=== PATIENT | female | born 1960 | race Caucasian/White ===

== ENCOUNTER 2017-12-01 11:32 | Inpatient (IN) | payer BC ==
[~2017-12-01] VITALS: Ht 160 cm; Wt 63.5 kg
--- NOTE | 2017-12-01 11:38 | NUR ---
Patient brougnt in by EMS services, vitals as follow: HR 115, 114/73 sat of 91% on RA. NC 2 L applied saturation increased to 95%
[2017-12-01 11:51] LABS: *BILIRUBIN,URIN NEGATIVE (NEGATIVE); *BLOOD, URINE Trace-lysed (NEGATIVE); *CLARITY,URINE CLEAR (CLEAR); *COLOR,URINE YELLOW (YELLOW); *KETONES,URINE 1+ (NEGATIVE); *PROTEIN,URINE 2+ (NEGATIVE); *UROBILINOGEN,URINE 0.2 E.U./dl (NORMAL); LEUKOCYTE ESTERASE ,URINE NEGATIVE (NEGATIVE); NITRITE, URINE NEGATIVE (NEGATIVE); PH,URINE 5.5 (5.0-8.0); UGLUCOSE NEGATIVE (NEGATIVE)
[2017-12-01 11:55] LABS: BACTERIA,URINE FEW /HPF (NONE SEEN); RBC,URINE 0-3 /HPF (0-3); SQUAMOUS EPITHELIAL CELL,UR MODERATE /HPF (NONE SEEN); WBC,URINE 0-3 /HPF (0-3)
--- NOTE | 2017-12-01 12:00 | NUR ---
Patient awake at this time speech clear, but pt. is confused, disoriented. HR of 136. at bedside.
[2017-12-01 12:39] LABS: BASOPHILS % (AUTO) 0.3 % (0.0-2.0); EOSINOPHILS # (AUTO) 0.3 K/uL (0.0-0.7); EOSINOPHILS % (AUTO) 2.8 % (0.0-7.0); HEMATOCRIT 38.2 % (31.2-41.9); HEMOGLOBIN 12.8 g/dL (10.9-14.3); LYMPHOCYTES # (AUTO) 0.8 K/uL (20.0-40.0); LYMPHOCYTES % (AUTO) 8.4 % (20.5-51.5); MEAN CORPUSCULAR HEMOGLOBIN 32.4 uug (24.7-32.8); MEAN CORPUSCULAR HGB CONC 34 g/dL (32.3-35.6); MEAN CORPUSCULAR VOLUME 96.5 fL (75.5-95.3); MONOCYTES # (AUTO) 0.5 K/uL (2.0-10.0); MONOCYTES % (AUTO) 5.2 % (0.0-11.0); NEUTROPHILS # (AUTO) 8.1 K/uL (1.8-8.9); NEUTROPHILS % (AUTO) 83.3 % (38.5-71.5); PLATELET COUNT (AUTO) 204 K/uL (179-408); RED BLOOD CELL COUNT(AUTO) 3.96 MIL/uL (3.63-4.92); WHITE BLOOD COUNT (AUTO) 9.8 K/uL (3.8-11.8)
[2017-12-01 12:43] LABS: CARBON DIOXIDE 16 mmol/L (21-32); CHLORIDE 103 mmol/L (98-107); CREATININE 1.3 mg/dL (0.6-1.3); ETHANOL < 3 MG/DL (0-0); GLUCOSE 176 mg/dL (74-106); POTASSIUM 3.5 mmol/L (3.5-5.1); UREA NITROGEN, BLOOD 8 mg/dL (7-18)
[2017-12-01 12:45] LABS: *AMPHETAMINE, URINE NEGATIVE (NEGATIVE); *BARBITURATE, URINE NEGATIVE (NEGATIVE); *CANNABINOID, URINE NEGATIVE (NEGATIVE); *COCCAINE, URINE NEGATIVE (NEGATIVE); *OPIATE, URINE NEGATIVE (NEGATIVE); *PHENCYCLIDINE SCREEN,URINE NEGATIVE (NEGATIVE)
[2017-12-01 12:49] LABS: ALANINE AMINOTRANSFERASE 70 U/L (14-59); ALKALINE PHOSPHATASE 87 U/L (50-136); ASPARTATE AMINOTRANSFERASE 45 U/L (15-37); BILIRUBIN,DIRECT 0.1 mg/dL (0.0-0.2); BILIRUBIN,TOTAL 0.4 mg/dL (0.2-1.0); TOTAL PROTEIN, SERUM 7.1 g/dL (6.4-8.2)
--- NOTE | 2017-12-01 12:56 | NUR ---
Pt. taken down for C.T. of the head.
[2017-12-01 13:00] LABS: ACETAMINOPHEN 5.4 ug/mL (10-30); THYROID STIMULATING HORMONE 4.067 mIU/mL (0.358-3.740)
--- NOTE | 2017-12-01 13:10 | NUR ---
PT. back from Ct.
--- NOTE | 2017-12-01 14:26 | NUR ---
AAOx2. Fiona. vitals as follow:HR of 100 100% SAT on 2L. 134/90
--- NOTE | 2017-12-01 15:36 | NUR ---
a call to [facility] and Dr. Hinson on the phone.
--- NOTE | 2017-12-01 16:00 | NUR ---
Telephone report given to Trav Jimenez by celestino Meehan. and patient taken up via gurney.
[2017-12-01 16:30] VITALS: BP 127/74
--- NOTE | 2017-12-01 16:33 | NUR ---
paging doctor donald for admitting orders pending call back.
[2017-12-01] MEDS ORDERED: xanax (16:49)
[2017-12-01] MEDS ORDERED: zyrtec (16:49)
[2017-12-01] MEDS ORDERED: lipitor (16:49)
[2017-12-01] MEDS ORDERED: MAGNESIUM HYDROXIDE 30 ML LIQUID UDC PO PRN (17:45)
[2017-12-01] MEDS ORDERED: FOLIC ACID 1 MG in IV DEXTROSE 5% 50 ML IV SCH (17:45)
[2017-12-01] MEDS ORDERED: ONDANSETRON 4 MG/2 ML VIAL IV PRN (17:45)
[2017-12-01] MEDS ORDERED: THIAMINE HCL INJ 100 MG in IV DEXTROSE 5% 50 ML IV SCH (17:45)
[2017-12-01] MEDS ORDERED: HYDROCODONE/APAP 5-325MG TABLET PO PRN (17:45)
[2017-12-01] MEDS ORDERED: ZOLPIDEM 5 MG TABLET PO PRN (17:45)
[2017-12-01] MEDS ORDERED: Z GUARD REMEDY PASTE 57 GM TUBE TOP PRN (17:45)
[2017-12-01] MEDS: IV NS 1000 ML 1,000 ML IV PRN (18:32)
[2017-12-01] MEDS ORDERED: LORAZEPAM 2 MG/1 ML VIAL IV PRN (18:45)
--- NOTE | 2017-12-01 19:20 | NUR ---
Received patient lying in bed. AAO x4. In no acute distress. IV site on right AC intact and patent. IVF infusing. Denies any SOB or pain at this time. On O2 at 2lpm via NC in place. O2 sat at 96%. Sinus tachy on tele at 110/min. Needs assessed and attended to. Safety measure initiated and call hernandez within reach.
[2017-12-01] MEDS: ACETAMINOPHEN 325 MG TABLET PO PRN (20:09)
[2017-12-01 20:15] VITALS: BP 131/82
[2017-12-01] MEDS ORDERED: TRAZODONE 100 MG TABLET PO SCH (21:00)
[2017-12-02] VITALS: BP 120/72
[2017-12-02 04:00] VITALS: BP 120/64
--- NOTE | 2017-12-02 06:04 | NUR ---
AAOx4. In no acute distress. VS WNL. IV site on right AC remains intact and patent. IVF infusing. O2 at 2lpm via NC in place. O2 sat at 97%. NSR on tele at 90/min. Sutton catheter intact and patent. seizure precaution observed. Needs assessed and attended to. Safety measure maintained and call hernandez within reach.
[2017-12-02 06:15] LABS: BASOPHILS % (AUTO) 0.5 % (0.0-2.0); EOSINOPHILS # (AUTO) 0.2 K/uL (0.0-0.7); EOSINOPHILS % (AUTO) 3.2 % (0.0-7.0); HEMATOCRIT 32.5 % (31.2-41.9); HEMOGLOBIN 11.4 g/dL (10.9-14.3); LYMPHOCYTES # (AUTO) 1.4 K/uL (20.0-40.0); LYMPHOCYTES % (AUTO) 20.3 % (20.5-51.5); MEAN CORPUSCULAR HEMOGLOBIN 33.1 uug (24.7-32.8); MEAN CORPUSCULAR HGB CONC 35 g/dL (32.3-35.6); MEAN CORPUSCULAR VOLUME 94.3 fL (75.5-95.3); MONOCYTES # (AUTO) 0.8 K/uL (2.0-10.0); MONOCYTES % (AUTO) 12.5 % (0.0-11.0); NEUTROPHILS # (AUTO) 4.3 K/uL (1.8-8.9); NEUTROPHILS % (AUTO) 63.5 % (38.5-71.5); PLATELET COUNT (AUTO) 188 K/uL (179-408); RED BLOOD CELL COUNT(AUTO) 3.45 MIL/uL (3.63-4.92); WHITE BLOOD COUNT (AUTO) 6.7 K/uL (3.8-11.8)
[2017-12-02 06:35] LABS: BILIRUBIN,TOTAL 0.6 mg/dL (0.2-1.0); CREATININE 1.7 mg/dL (0.6-1.3); MAGNESIUM 2.3 mg/dL (1.8-2.4); PHOSPHOROUS 5.4 mg/dL (2.5-4.9); POTASSIUM 3.6 mmol/L (3.5-5.1)
--- NOTE | 2017-12-02 07:20 | NUR ---
RECEIVED ASLEEP WITH NO SEIZURE ACTIVITIES AT THIS TIME REMAIN ON IVF ORDERED WITH NO S/S OF INFILTERATION ON SITE.DENIES PAIN OR DISCOMFORTS OLIVERA CATH REMAINS INTACT WITH CLEAR YELLOW URINE AT THIS TIME NO DISTRESS NOTED WILL CONTINUE TO OBSERVE.
[2017-12-02] MEDS ORDERED: THIAMINE HCL 100 MG TABLET PO SCH (09:15)
[2017-12-02] MEDS ORDERED: FOLIC ACID 1 MG TABLET PO SCH (09:15)
[2017-12-02] MEDS: IV NS 1000 ML 1,000 ML IV PRN (09:52)
[2017-12-02] MEDS: ACETAMINOPHEN 325 MG TABLET PO PRN (09:52)
--- NOTE | 2017-12-02 10:19 | NUR ---
MEDICATED WITH TYLENOL FOR C/O HEADACHE ORDERED AND WILL OBSERVE EFFECTIVENESS.
--- NOTE | 2017-12-02 11:07 | NUR ---
PATIENT SEEN BY THE PHYSICAL THERAPY AND SHE AMBULATED IN THE HALLWAY WITH SBA WITH STEADY GAIT AND TOLERATED WELL. THE PLAN IS THAT PATIENT WILL BE SEEN BY A NEUROLOGIST TO DETERMINE THE NEXT PLAN OF CARE.
[2017-12-02] MEDS ORDERED: ATOR10TA PO (11:24)
[2017-12-02] MEDS ORDERED: ALPR1TAB7 PO (11:25)
[2017-12-02] MEDS ORDERED: CETI-102 PO (11:26)
[2017-12-02] MEDS ORDERED: NAPR-1192 PO (11:26)
[2017-12-02 11:49] VITALS: BP 121/75
--- NOTE | 2017-12-02 12:49 | NUR ---
DR JIMENEZ HERE TO SEE AND EXAMINE PATIENT WITH NO NEW ORDERS AT THIS TIME.
--- NOTE | 2017-12-02 13:15 | NUR ---
NEW ORDERS NOTED TO DISCHARGE PATIENT HOME TODAY PATIENT AWARE OLIVERA CATH REMOVED PATIENT STATED THAT HER FRIEND NATANAEL WILL BE ABLE TO PICK HER UP ABOUT 1500 TODAY.
--- NOTE | 2017-12-02 15:15 | NUR ---
PATIENT DISCHARGED PICKED UP BY HER FRIEND RASHID IN STABLE CONDITION WITH ALL HER DISCHARGE INSTRUCTIONS AND PERSONAL BELONGINGS AND PATIENT INSTRUCTED TO FOLLOW UP WITH HER PRIMARY DOCTOR FOR OUT PATIENT MRI AND EEG AND SHE EXPRESSED UNDERSTANDING NO SEIZURE ACTIVITIES NOTED.
== END 2017-12-02 15:15 | disposition home or self-care (01) | DRG 897 ==
LOC: ER 11:32 → TELE 15:49
PROVIDERS: ADMIT Internal Medicine; ATTEND Internal Medicine
DX: F10.239 Alcohol dependence with withdrawal, unspecified (principal); G40.89 Other seizures; Y90.9 Presence of alcohol in blood, level not specified
CPT/HCPCS: 36415; 70030-TC; 70450; 71045; 80307; 83605; 83735; 84100; 84443; 85025; 85730; 87040; 93005; A4663; G0378; G0480; G0480-TC; J2060; J3411; J3490; J7030; J7060